=== PATIENT | female | born 1965 | race Caucasian/White ===

== ENCOUNTER 2018-12-07 14:26 | Emergency (ER) | payer OTHER ==
[~2018-12-07] VITALS: Ht 162.6 cm; Wt 80.5 kg
[2018-12-07 14:29] VITALS: Ht 162.6 cm; Wt 80.5 kg
[2018-12-07] MEDS ORDERED: HYDR-4011 PO (18:38)
[2018-12-07] MEDS ORDERED: IBUP800T48 PO (18:38)
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
== END 2018-12-07 19:47 | disposition home or self-care (01) ==
LOC: FTE 14:26
DX: S89.91XA Unspecified injury of right lower leg, initial encounter (principal); V49.40XA Driver injured in collision with unspecified motor vehicles in traffic accident, initial encounter
CPT/HCPCS: 73562; Z7502